=== PATIENT | male | born 1945 | race Caucasian/White ===

== ENCOUNTER → 2021-03-22 | Outpatient (CLI) | payer MEDICARE ==
[~2021-03-22] MED LIST: ATOR20TA37 PO; CALC0.25 PO; CALC200T3 PO; CEFD300C37 PO; CHLO4TAB22 PO; HYDR25TA6 PO; LEVO200T PO; LOSA100T14 PO; MAGN71.5 PO; METO25TA91 PO; SULF-23 PO; UBID100C41 PO; VIT1TABL83 PO
== END | disposition home or self-care (01) ==
LOC: CFH 12:35
PROVIDERS: ATTEND Internal Medicine
DX: J98.4 Other disorders of lung (principal); R91.1 Solitary pulmonary nodule
CPT/HCPCS: 71250